=== PATIENT | female | born 1975 | race Two or more races ===

== ENCOUNTER 2017-11-28 10:42 | Outpatient (CLI) | payer OTHER | END 2017-11-28 11:00 | disposition home or self-care (01) | LOC: RAD 501 10:42 | DX: N20.0 Calculus of kidney (principal) ==

== ENCOUNTER 2019-10-18 08:06 | Outpatient (CLI) | payer OTHER | END 2019-10-18 08:32 | disposition home or self-care (01) | LOC: MAMO-SONO 08:06 | DX: Z12.31 Encounter for screening mammogram for malignant neoplasm of breast (principal); Z87.898 Personal history of other specified conditions; N60.11 Diffuse cystic mastopathy of right breast; N60.12 Diffuse cystic mastopathy of left breast ==

== ENCOUNTER 2023-07-07 10:45 | Inpatient (IN) | payer OTHER ==
[~2023-07-07] VITALS: Ht 152.4 cm; Wt 65.8 kg
[2023-07-07] MEDS ORDERED: ATACAND16 MG PO (13:50)
[2023-07-07] MEDS ORDERED: ZYRTEC10 M3 PO (13:50)
[2023-07-07] MEDS ORDERED: MAXFE CAPLET1 EAC1 PO (13:51)
[2023-07-17 19:27] LABS: HEMATOCRIT 37.5 % (36.0-45.00); HEMOGLOBIN 12.3 g/dL (12.0-15.00); MEAN CELL VOLUME 87.8 fL (80.00-100.00); MEAN CORPUSCULAR HEMOGLOBIN 28.9 pg (27.00-32.0); MEAN CORPUSCULAR HGB CONC 32.9 g/dl (32.0-36.0); PLATELET COUNT 216 K/uL (150-450); RED BLOOD COUNT 4.27 M/uL (4.00-6.00); RED CELL DISTRIBUTION WIDTH 14.6 % (11.5-14.5)
[2023-07-18 07:46] LABS: HEMATOCRIT 35.5 % (36.0-45.00); HEMOGLOBIN 11.8 g/dL (12.0-15.00); MEAN CORPUSCULAR HEMOGLOBIN 29.2 pg (27.00-32.0); MEAN CORPUSCULAR HGB CONC 33.2 g/dl (32.0-36.0); PLATELET COUNT 245 K/uL (150-450); RED BLOOD COUNT 4.03 M/uL (4.00-6.00); RED CELL DISTRIBUTION WIDTH 14.7 % (11.5-14.5)
[2023-07-19] MEDS ORDERED: AMOX1TAB5 PO (06:31)
[2023-07-19] MEDS ORDERED: GABAPENTIN300 MG PO (06:31)
[2023-07-19] MEDS ORDERED: TRAM1TAB98 PO (06:31)
[2023-07-19] MEDS ORDERED: IBUPROFEN800 MG PO (06:31)
== END 2023-07-19 13:13 | disposition home or self-care (01) | DRG 743 ==
LOC: O/R 07-17 08:43 → OB/GYN 07-17 10:45
PROVIDERS: ADMIT Obstetrics & Gynecology Gynecology; ATTEND Obstetrics & Gynecology Gynecology
PROC: 0UT10ZZ Resection of Left Ovary, Open Approach (ICD-10-PCS; 2023-07-17)
PROC: 0USG0ZZ Reposition Vagina, Open Approach (ICD-10-PCS; 2023-07-17)
PROC: 0UT90ZZ Resection of Uterus, Open Approach (ICD-10-PCS; principal; 2023-07-17 17:45)
DX: D25.1 Intramural leiomyoma of uterus (principal); D25.2 Subserosal leiomyoma of uterus; D25.0 Submucous leiomyoma of uterus; D27.1 Benign neoplasm of left ovary; N72 Inflammatory disease of cervix uteri; N80.109 Endometriosis of ovary, unspecified side, unspecified depth; N80.209 Endometriosis of unspecified fallopian tube, unspecified depth; Z20.822 Contact with and (suspected) exposure to COVID-19